=== PATIENT | female | born 1980 | race Caucasian/White ===

== ENCOUNTER → 2017-03-12 | Outpatient (CLI) | payer BC ==
[~2017-03-12] VITALS: Ht 165.1 cm; Wt 95.5 kg
[~2017-03-12] MED LIST: BENADRYL ALLERG25 M2 PO; BUDESONIDE3 MG; IMURAN50 MG PO; NEXIUM40 MG; NORCO 325 MG-51 TA1 PO; OXYCODONE5 MG; PRENATAL1 TA1; SYMBICORT1 AE5; URSO FORTE500 M1 PO; VITAMIN D1000 IU; ZANTAC150 M1 PO; ZITHROMAX500 M2; ZOFRAN4 M2 PO; [UNRECOGNIZED DRUG - OTHER]
[2017-03-12 18:00] VITALS: BP 138/73
[2017-03-12 19:49] VITALS: BP 1122/75
== END ==
LOC: AMSURD 17:35 → EDSTATUS 17:35
DX: K74.60 Unspecified cirrhosis of liver (principal); K74.3 Primary biliary cirrhosis; K75.4 Autoimmune hepatitis; D50.9 Iron deficiency anemia, unspecified
CPT/HCPCS: J1200; J2916

== ENCOUNTER 2018-09-24 09:30 | Outpatient (RCR) | payer BC ==
[2017-03-12 19:49] VITALS: BP 1122/75
== END 2018-11-22 | disposition home or self-care (01) ==
LOC: PT
DX: M22.2X1 Patellofemoral disorders, right knee (principal)

== ENCOUNTER → 2019-10-29 | Outpatient (CLI) | payer BC ==
[2017-03-12 19:49] VITALS: BP 1122/75
[2019-10-29 12:48] LABS: ALBUMIN 3.8 g/dL (3.5-5.0); POTASSIUM 3.5 mmol/L (3.5-5.1)
[2019-10-29 12:49] LABS: CALCIUM 9.3 mg/dL (8.3-10.5)
[2019-10-29 12:50] LABS: TOTAL PROTEIN 7.2 g/dL (6.4-8.3)
[2019-10-29 12:52] LABS: TOTAL BILIRUBIN 0.6 mg/dL (0.2-1.2)
[2019-10-29 13:07] LABS: URINE APPEARANCE HAZY; URINE COLOR YELLOW; URINE PROTEIN(semi-quant) TRACE mg/dL (NEGATIVE)
[2019-10-29 13:08] LABS: URINE BILIRUBIN NEGATIVE (NEGATIVE); URINE BLOOD TRACE (NEGATIVE); URINE GLUCOSE NEGATIVE (NEGATIVE); URINE KETONE 2+ (NEGATIVE); URINE LEUKOCYTE ESTERASE NEGATIVE (NEGATIVE); URINE NITRATE NEGATIVE (NEGATIVE); URINE UROBILINOGEN NORMAL (NORMAL)
[2019-10-29 13:09] LABS: URINE MUCUS PRESENT (NOT PRESENT)
[2019-10-29 13:42] LABS: EOS % 0.6 % (1.0-5.0); HEMATOCRIT 35.5 % (37.0-47.0); HEMOGLOBIN 11.9 g/dL (12.5-16.0); LYMPH# 0.9 (1.50-4.00); MEAN CELL VOLUME 100 fl (78-100); MEAN CORPUSCULAR HEMOGLOBIN 34 pg (27-31); MEAN CORPUSCULAR HGB CONC 34 g/dL (33-37); MEAN PLATELET VOLUME 10.5 fl (7.4-10.4); MONO # 0.4 (0.20-0.80); NEU # 4.1 (1.40-6.50); PLATELET COUNT 212 K/mm3 (130-400); RED BLOOD COUNT 3.54 M/mm3 (4.10-5.30); RED CELL DISTRIBUTION WIDTH 12.3 % (11.5-14.5); WHITE BLOOD COUNT 5.4 K/mm3 (4.8-10.8)
== END ==
LOC: LAB 12:24
PROVIDERS: Family Medicine
DX: D72.819 Decreased white blood cell count, unspecified (principal); E78.1 Pure hyperglyceridemia; R80.9 Proteinuria, unspecified

== ENCOUNTER → 2020-03-06 | Outpatient (CLI) | payer BC ==
[2017-03-12 19:49] VITALS: BP 1122/75
[2020-03-06 10:10] LABS: HEMATOCRIT 33.1 % (37.0-47.0); HEMOGLOBIN 10.8 g/dL (12.5-16.0); RED BLOOD COUNT 3.11 M/mm3 (4.10-5.30); RED CELL DISTRIBUTION WIDTH 13.4 % (11.5-14.5); WHITE BLOOD COUNT 9.2 K/mm3 (4.8-10.8)
== END ==
LOC: LAB 09:33
DX: O09.92 Supervision of high risk pregnancy, unspecified, second trimester (principal)

== ENCOUNTER → 2020-07-26 | Outpatient (CLI) | payer BC ==
[2017-03-12 19:49] VITALS: BP 1122/75
== END ==
LOC: RAD 07:02
DX: K75.4 Autoimmune hepatitis (principal); D84.9 Immunodeficiency, unspecified

== ENCOUNTER → 2021-05-31 | Day surgery (SDC) | payer BC | LOC: MSO 07:52 | DX: Z12.11 Encounter for screening for malignant neoplasm of colon (principal); K21.9 Gastro-esophageal reflux disease without esophagitis; K74.3 Primary biliary cirrhosis; J45.909 Unspecified asthma, uncomplicated; G43.909 Migraine, unspecified, not intractable, without status migrainosus; D25.9 Leiomyoma of uterus, unspecified; N18.6 End stage renal disease; E72.51 Non-ketotic hyperglycinemia; E66.01 Morbid (severe) obesity due to excess calories; R73.03 Prediabetes; M79.7 Fibromyalgia; Z68.36 Body mass index [BMI] 36.0-36.9, adult; Z90.89 Acquired absence of other organs; Z90.49 Acquired absence of other specified parts of digestive tract; Z83.71 Family history of colonic polyps; Z80.0 Family history of malignant neoplasm of digestive organs | CPT/HCPCS: 00812; J2704; J3010; J7120 ==

== ENCOUNTER → 2023-09-24 | Outpatient (CLI) | payer BC | LOC: RAD 08:29 | DX: K74.60 Unspecified cirrhosis of liver (principal) ==

== ENCOUNTER 2024-02-02 18:11 | Emergency (ER) | payer BC ==
[~2024-02-02] VITALS: Ht 165.1 cm; Wt 109.1 kg
[2024-02-02 18:20] VITALS: BP 141/82
[2024-02-02] MEDS ORDERED: TRAMADOL 50 MG TAB PO (18:20)
[2024-02-02] MEDS ORDERED: Ondansetron 4 MG/2 ML VIAL IV ONE (18:45)
[2024-02-02] MEDS ORDERED: Ketorolac 30 MG/ML VIAL IV ONE (18:45)
[2024-02-02 18:50] LABS: HEMATOCRIT 36.9 % (37.0-47.0); HEMOGLOBIN 12.5 g/dL (12.5-16.0); MEAN CELL VOLUME 102 fl (78-100); MEAN CORPUSCULAR HEMOGLOBIN 35 pg (27-31); MEAN CORPUSCULAR HGB CONC 34 g/dL (33-37); MEAN PLATELET VOLUME 10.5 fl (7.4-10.4); PLATELET COUNT 151 K/mm3 (130-400); RED BLOOD COUNT 3.62 M/mm3 (4.10-5.30); WHITE BLOOD COUNT 5.9 K/mm3 (4.8-10.8)
[2024-02-02 19:01] LABS: ALBUMIN 3.8 g/dL (3.5-5.0)
[2024-02-02 19:02] LABS: CALCIUM 9.1 mg/dL (8.3-10.5)
[2024-02-02 19:05] LABS: TOTAL BILIRUBIN 0.9 mg/dL (0.2-1.2)
[2024-02-02 19:11] LABS: LYMPHOCYTE 4 % (20-51); MONOCYTE 6 % (3-10); NEUTROPHILS 89 % (42-75)
[2024-02-02] MEDS ORDERED: Acetaminophen 500 MG TAB PO ONE (19:45)
== END 2024-02-02 19:56 | disposition home or self-care (01) ==
LOC: ED 18:11
PROVIDERS: Nurse Practitioner Family
DX: B34.9 Viral infection, unspecified (principal); R51.9 Headache, unspecified; R07.89 Other chest pain; R68.83 Chills (without fever); R11.0 Nausea; E66.9 Obesity, unspecified
CPT/HCPCS: J2405

== ENCOUNTER 2024-02-20 17:26 | Emergency (ER) | payer BC ==
[~2024-02-20 17:26] MED LIST changes: +TRAMADOL 50 MG TAB PO
== END 2024-02-20 18:58 | disposition home or self-care (01) ==
LOC: ED 17:26
DX: K64.8 Other hemorrhoids (principal); K62.89 Other specified diseases of anus and rectum